=== PATIENT | female | born 1945 | race Caucasian/White ===

== ENCOUNTER 2022-01-14 08:49 | Emergency (ER) | payer MEDICARE ==
[~2022-01-14] VITALS: Ht 160 cm; Wt 68.0 kg
[2022-01-14] MEDS ORDERED: KETOROLAC 60 MG/2 ML VIAL IM ONE (09:15)
[2022-01-14 09:20] VITALS: BP_SYST 127; BP_SYST 138; BP_SYST 143; BP_DIAS 57; BP_DIAS 69; BP_DIAS 75
--- NOTE | 2022-01-14 09:28 | ED Fall/Injury ---
General Chief Complaint: Rib Pain Stated Complaint: RIB PAIN Nursing Triage Note: ARRIVED VIA AMB WITH COMPLAINTS OF LEFT RIB PAIN AFTER FALLING ON 01/12. PT REPORTS POSITIVE LOC. Source: patient Exam Limitations: no limitations History of Present Illness Date Seen by Provider: Jan 14, 2022 Time Seen by Provider: 09:01 Initial Comments Patient to the ER by private conveyance with her significant other and chief complaint of 2 days ago she had a fall while moving some boxes and trying to keep the cat out of the bedroom using her left leg. She says she lost balance fell and struck the front of her head on the left maxilla. She says she was unconscious for a few seconds. No nausea vomiting weakness or numbness since then but she has continued to have left anterior rib pain. She has an abrasion over her left vera which she has been doctoring with Neosporin and Band-Aids. She thought her ribs would get better but they have persisted so she decided to come in and get them checked out. No checked out at the time. No shortness of air cough or hemoptysis. She is diabetic. Not on any blood thinners. Allergies and Home Medications Allergies Coded Allergies: Sulfa (Sulfonamide Antibiotics) (Verified Allergy, Unknown, 01/14/22) Patient Home Medication List Home Medication List Reviewed: Yes Hydrocodone/Acetaminophen (Hydrocodone-Acetamin 5-325 mg) 5 Mg-325 Mg Tablet, 1 TAB PO Q4H PRN for PAIN-MODERATE (5-7) Prescribed by: ERIKA FREEDMAN on 01/14/22 1232 Review of Systems Review of Systems Constitutional: No chills, No diaphoresis Eyes: Denies Blindness, Denies Blurred Vision Ears, Nose, Mouth, Throat: denies ear pain, denies nose pain Respiratory: No cough, No short of breath Cardiovascular: see HPI, chest pain; No edema Gastrointestinal: No abdominal pain, No nausea Genitourinary: No discharge, No dysuria All Other Systems Reviewed Negative Unless Noted: Yes Past Hsxvchf-Tlrdje-Pvrfgc Hx Patient Social History Tobacco Use?: No Alcohol Use?: No Physical Exam Vital Signs Vital Signs - First Documented 01/14/22 09:04 Temp 36.0 Pulse 97 Resp 16 B/P (MAP) 150/55 (86) Pulse Ox 96 O2 Delivery Room Air Capillary Refill : Less Than 3 Seconds Height, Weight, BMI Height: '" Weight: lbs. oz. kg; 26.00 BMI Method: General Appearance: WD/WN, mild distress HEENT: PERRL/EOMI, pharynx normal Neck: full range of motion, normal inspection Cardiovascular: normal peripheral pulses, regular rate, rhythm Respiratory: no respiratory distress, no accessory muscle use Extremities: normal range of motion, non-tender, normal capillary refill Lakhwinder Coma Score Best Eye Response: (4) Open Spontaneously Best Verbal Response: (5) Oriented Best Motor Response: (6) Obeys Commands [place] Total: 15 Progress/Results/Core Measures Results/Orders My Orders Orders - ERIKA FREEDMAN Ribs, Left 2-3 Views (01/14/22 09:12) Ketorolac Injection (Toradol Injection) (01/14/22 09:15) Orthostatic Vital Signs (Adult (01/14/22 09:12) Hydrocodone/Apap 5/325 Tablet (Lortab 5 (01/14/22 12:30) Medications Given in ED Current Medications Medications Dose Ordered Sig/David Route Start Time Stop Time Status Last Admin Dose Admin Acetaminophen/ Hydrocodone Bitart 1 ea ONCE ONCE PO 01/14/22 12:30 01/14/22 12:31 DC 01/14/22 12:39 1 EA Ketorolac Tromethamine 60 mg ONCE ONCE IM 01/14/22 09:15 01/14/22 09:16 DC 01/14/22 09:35 60 MG Vital Signs/I&O 01/14/22 01/14/22 01/14/22 09:04 09:20 12:39 Temp 36.0 Pulse 97 80 78 82 92 Resp 16 16 B/P (MAP) 150/55 (86) 143/57 (85) 115/74 138/69 (92) 127/75 (92) Pulse Ox 96 98 O2 Delivery Room Air Room Air Blood Pressure Mean: 92 Progress Progress Note #1: Time: 09:27 Progress Note Neurologically intact 2 days after the incident. If she had a intracranial bleed not on blood thinners it is unlikely it would require any intervention and therefore radiation for a CT of her head is greater than any potential benefit from imaging of her head. Will get imaging of her ribs however. Toradol for her pain. Orthostats are borderline and probably reflect that she has not been eating or drinking as well since her fall. We will trial a round of p.o. fluids first. Progress Note #2: Time: 12:25 Progress Note The patient received Toradol and is better but still having quite a bit of pain on movement. We did discuss risk for pneumonia and will give her some hydrocodone now as well as a prescription to [facility]. RT will do some training with the incentive spirometer before we send her home. Return precautions discussed. Patient's questions were all answered. Diagnostic Imaging Diagonstic Imaging: Xray Comments [facility], [place] NAME: [facility] REC#: [id number] PT STATUS: REG ER : 1945 PHYSICIAN: ERIKA FREEDMAN MD ADMIT DATE: 01/14/22/ER Draft Date of Exam:01/14/22 RIBS, LEFT 2-3 VIEWS INDICATION: Left rib pain. EXAMINATION: Left rib series, 3 views, on 01/14/2022. FINDINGS: There are no displaced rib fractures. The visualized lungs are clear with no pneumothorax appreciated. Incidentally noted are post operative changes in the upper abdomen. IMPRESSION: No displaced rib fractures. Dictated on workstation # [id number] Dict: 01/14/22 1002 Trans: 01/14/22 1004 [id number] Interpreted by: ISH NIELSON MD Electronically signed by: Reviewed: Reviewed by Me Departure Impression Primary Impression: Contusion of rib on left side Qualified Codes: S20.212A - Contusion of left front wall of thorax, initial encounter Additional Impressions: Fall Qualified Codes: W19.XXXA - Unspecified fall, initial encounter Facial contusion Qualified Codes: S00.83XA - Contusion of other part of head, initial encounter Disposition: 01 HOME, SELF-CARE Condition: Improved Departure-Patient Inst. Decision time for Depature: 12:26 Referrals: NO,LOCAL PHYSICIAN (PCP/Family) Primary Care Physician Patient Instructions: Bruised Rib (DC) Add. Discharge Instructions: Ice 20 minutes on every 2 hours while awake for the first day. Heat and topical creams such as icy hot, capsaicin oil, [place] balm etc. Use lidocaine patches, Voltaren gel etc. as necessary to control pain in your ribs and back. Aleve 1 to 2 tablets twice a day as necessary for pain. Tylenol 650 mg every 8 hours as needed for pain. Hydrocodone 1 tablet every 4 hours as necessary for severe pain limiting your functionality. Hydrocodone will cause drowsiness and may increase your risk for falls. Hydrocodone will also cause constipation. I suggest you start taking Colace and/or MiraLAX to maintain regularity. Incentive spirometer 10 inhalations through the machine every hour while awake for the first 2 weeks. Incentive spirometry will help open your lungs you do not develop pneumonia. Return to your doctor or the ER if you are developing symptoms of pneumonia such as fever above 100.3, a productive cough or significantly worsening shortness of breath. All discharge instructions reviewed with patient and/or family. Voiced understanding. Scripts Hydrocodone/Acetaminophen (Hydrocodone-Acetamin 5-325 mg) 5 Mg-325 Mg Tablet 1 TAB PO Q4H PRN for PAIN-MODERATE (5-7), #14 TAB 0 Refills Prov: ERIKA FREEDMAN 01/14/22 ERIKA FREEDMAN Jan 14, 2022 09:28
--- NOTE | 2022-01-14 10:04 | Diagnostic Imaging Report ---
INDICATION: Left rib pain. EXAMINATION: Left rib series, 3 views, on 01/14/2022. FINDINGS: There are no displaced rib fractures. The visualized lungs are clear with no pneumothorax appreciated. Incidentally noted are post operative changes in the upper abdomen. IMPRESSION: No displaced rib fractures. Dictated by: Dictated on workstation # [id number]
[2022-01-14] MEDS ORDERED: ACHD5005 PO (12:30)
[2022-01-14] MEDS ORDERED: HYDROcodone/APAP 5 MG/325 MG (LORTAB) TAB PO ONE (12:30)
[2022-01-14 12:39] VITALS: BP 115/74
== END 2022-01-14 12:39 | disposition home or self-care (01) ==
LOC: EDUNIT# 08:49 → ER 08:52
DX: S20.212A Contusion of left front wall of thorax, initial encounter (principal); S00.83XA Contusion of other part of head, initial encounter; W18.39XA Other fall on same level, initial encounter
CPT/HCPCS: 71100; 94664

== ENCOUNTER → 2022-09-11 | Outpatient (CLI) | payer MEDICARE ==
[~2022-09-11] MED LIST: ACHD5005 PO
--- NOTE | 2022-09-11 10:22 | Diagnostic Imaging Report ---
PROCEDURE: MRI lumbar spine. TECHNIQUE: Multiplanar, multisequence MRI of the lumbar spine was performed without contrast. INDICATION: Spine pain, abdominal pain COMPARISON: None FINDINGS: Alignment of the lumbar spine is normal with no spondylolisthesis. There is mildly decreased T2 signal in the disks, but disc heights are generally preserved. Vertebral body heights are preserved. No acute fracture is seen. The conus terminates in appropriate position. Soft tissues about the lumbar spine demonstrate no acute abnormality. T12-L1: No significant disc bulge. No spinal canal or foraminal stenosis. L1-L2: Mild disc bulge and facet arthropathy. No spinal canal stenosis. No foraminal stenosis. L2-L3: Mild diffuse disc bulge and facet arthropathy. No spinal canal stenosis. Mild right foraminal narrowing. No left foraminal stenosis. L3-L4: Diffuse disc bulge with left foraminal disc extrusion. Mild facet arthropathy. Mild spinal canal narrowing with narrowing of the left lateral recess. Mild right and severe left foraminal stenosis. L4-L5: Diffuse disc bulge with facet arthropathy. Mild spinal canal narrowing with effacement of the lateral recesses. Moderate right and moderate to severe left foraminal stenosis. L5-S1: Diffuse disc bulge and facet arthropathy. No spinal canal stenosis. Mild bilateral foraminal narrowing. IMPRESSION: 1. Degenerative disc disease with left foraminal disc extrusion causing severe left foraminal stenosis. 2. No significant spinal canal stenosis. There is additional left foraminal stenosis at L4-L5. Dictated by: Dictated on workstation # [id number]
--- NOTE | 2022-09-11 10:57 | Diagnostic Imaging Report ---
HISTORY: Thoracolumbar hemangiomas. Abdominal spasm. Spine pain. COMPARISON: None. TECHNIQUE: Multiplanar, multisequence noncontrast MRI examination of the thoracic spine. FINDINGS: Alignment of the thoracic spine is normal with no spondylolisthesis. Vertebral body heights are preserved. No acute fracture is seen. There is extensive T1 hyperintensity filling the T2 vertebral body, most likely a hemangioma. There is focal increased T2 hyperintensity at the T3, T4, and T5 vertebral bodies as well as a smaller region of T2 hyperintensity at the posterior right T10 vertebral body. These appear to have T1-weighted signal characteristics, similar to that of bone marrow, with no marrow replacement seen, most likely hemangiomas as well. There is a disc bulge at T8-T9 with a small disc extrusion centrally which measures about 5 x 3 mm in size. This flattens the anterior spinal cord with no cord signal changes seen. There is diffuse disc bulge at T9-T10. Other than the mild spinal canal narrowing at T8-T9, no spinal canal stenosis is seen. There is no significant right foraminal stenosis. There is mild left foraminal narrowing at T7-T8. Soft tissues about the thoracic spine demonstrate no acute abnormality. IMPRESSION: 1. Mild degenerative disc disease in the thoracic spine with disc bulge and extrusion at T8-T9 causing mild spinal canal narrowing. There is flattening of the anterior cord, but no cord signal changes seen. 2. Focal areas of abnormal signal involving the T2 through T5 vertebral bodies may be due to hemangiomas or possibly prior radiation therapy. Hemangioma at T10 is noted. Dictated by: Dictated on workstation # [id number]
== END ==
LOC: RAD 08:45
PROVIDERS: ATTEND Family Medicine
DX: M51.34 Other intervertebral disc degeneration, thoracic region (principal); M51.36 Other intervertebral disc degeneration, lumbar region; M51.24 Other intervertebral disc displacement, thoracic region; M51.26 Other intervertebral disc displacement, lumbar region; M48.04 Spinal stenosis, thoracic region; M48.061 Spinal stenosis, lumbar region without neurogenic claudication
CPT/HCPCS: 72146; 72148

== ENCOUNTER → 2023-01-28 | Outpatient (CLI) | payer MEDICARE ==
--- NOTE | 2023-01-28 14:54 | Diagnostic Imaging Report ---
HISTORY: Cervical thoracic radiculopathy COMPARISON: None TECHNIQUE: 7 views of the cervical spine FINDINGS: Alignment of the cervical spine demonstrates trace retrolisthesis at C5-C6 and C6-C7. There are mild degenerative changes at C5-C6. Vertebral body heights are preserved. Prevertebral soft tissues are normal. No acute fracture seen. There is mild facet arthropathy in the lower lumbar spine. There is no significant dynamic instability with flexion and extension. C1-C2 alignment is normal. There is moderate right foraminal osseous encroachment at C5-C6 and C6-C7. No osseous encroachment is seen on the left. IMPRESSION: 1. Mild degenerative changes at C5-C6 with no acute fracture seen in the cervical spine. 2. Grade 1 retrolisthesis at C5-C6 and C6-C7 without dynamic instability. 3. Right foraminal osseous encroachment at C5-C6 and C6-C7. Dictated by: Dictated on workstation # [id number]
== END ==
LOC: RAD 13:53
PROVIDERS: ATTEND Chiropractor
DX: M47.22 Other spondylosis with radiculopathy, cervical region (principal); M43.12 Spondylolisthesis, cervical region; M48.02 Spinal stenosis, cervical region
CPT/HCPCS: 72052